=== PATIENT | male | born 1955 | race African-American/Black ===

== ENCOUNTER 2021-07-19 17:01 | Inpatient (IN) | payer MEDICAID, OTHER ==
[~2021-07-19] VITALS: Ht 182.9 cm; Wt 74.8 kg
[2021-07-19 18:25] LABS: BASOPHILS % (AUTO) 0.9 % (0.0-2.0); EOSINOPHILS % (AUTO) 2.7 % (0.0-6.0); HEMATOCRIT 41 % (39-51); HEMOGLOBIN 13.3 g/dL (13.5-17.5); LYMPHOCYTES # (AUTO) 0.5 K/uL (0.8-4.8); LYMPHOCYTES % (AUTO) 14.3 % (20.0-44.0); MEAN CORPUSCULAR HGB CONC 32 g/dl (31.0-36.0); MEAN CORPUSCULAR VOLUME 85 fL (80-96); MONOCYTES # (AUTO) 0.4 K/uL (0.1-1.30); MONOCYTES % (AUTO) 10.6 % (2.0-12.0); NEUTROPHILS # (AUTO) 2.7 K/uL (1.8-8.9); NEUTROPHILS % (AUTO) 71.5 % (43.0-81.0); PLATELET COUNT (AUTO) 193 K/uL (150-450); RED BLOOD CELL COUNT(AUTO) 4.87 MIL/uL (4.5-6.0); WHITE BLOOD COUNT (AUTO) 3.8 K/uL (4.3-11.0)
[2021-07-19 18:49] LABS: ALBUMIN 2.9 g/dL (3.4-5.0); BILIRUBIN,TOTAL 1.6 mg/dL (0.2-1.0); CALCIUM, SERUM 8.2 mg/dL (8.5-10.1); CREATININE 1.7 mg/dL (0.6-1.3); POTASSIUM 3.5 mmol/L (3.5-5.1); TOTAL PROTEIN, SERUM 7.1 g/dL (6.4-8.2)
[2021-07-19] MEDS ORDERED: CEFTRIAXONE 1GM BAG (ER ONLY) 1 GM/50 ML PIGGYBACK IV ONE (20:00)
[2021-07-19] MEDS ORDERED: AZITHROMYCIN 250 MG TABLET PO ONE (20:00)
[2021-07-19] MEDS ORDERED: CEFTRIAXONE 1GM BAG (ER ONLY) 50 ML IV ONE (20:15)
[2021-07-19] MEDS ORDERED: AZITHROMYCIN 250 MG TABLET ONE (20:16)
--- NOTE | 2021-07-19 20:20 | NUR ---
CALLED CODE STEMI
--- NOTE | 2021-07-19 20:30 | NUR ---
MRSA SWAB COLLECTED AND SENT TO LAB. PATIENT'S BELONGINGS LIST DONE.
--- NOTE | 2021-07-19 20:31 | NUR ---
CALLED [facility] AT [phone] AND SPOKE WITH RAFAEL. HE RECEIVED THE EKG AND INFO. REQUESTS TRIAGE NOTE AND LABS TO BE FAXED. THEY WILL CALL THEIR TOP DISTRIBUTION EXECUTIVE
--- NOTE | 2021-07-19 20:32 | NUR ---
CALLED PT EMERGENCY CONTACT AUNDREA (FRIEND) [phone] TO NOTIFY OF ADMISSION
[2021-07-19] MEDS ORDERED: ASPIRIN 81 MG TAB.CHEW ONE (20:38)
--- NOTE | 2021-07-19 20:50 | NUR ---
DIRECT NUMBER FOR [facility] N[facility]SE RAFAEL IS [phone]. RAFAEL WAS ABOUT TO SPEAK TO THE PACKAGE SEALER MACHINE AND THEN WILL CALL BACK
[2021-07-19] MEDS ORDERED: ASPIRIN 81 MG TAB.CHEW PO ONE (21:00)
--- NOTE | 2021-07-19 21:01 | NUR ---
CALLED [facility] NURSE RAFAEL AT [phone]. RAFAEL IS UNABLE TO REACH THEIR NEWS WRITER. [facility] HOSPITALIST HAS SEEN THE EKG AND PLANS TO ACCEPT ONCE THEIR NEWS WRITER CONSULTS
--- NOTE | 2021-07-19 21:05 | NUR ---
LONNIE CARDONA CONSULTS WITH [facility] INTERNAL [facility]FFAIRS COMMANDER
--- NOTE | 2021-07-19 21:08 | NUR ---
PT WILL NOT BE TRANSFERED TO [facility]
--- NOTE | 2021-07-19 21:10 | NUR ---
RAFAEL [facility] CCT NURSE CALLED AND PT IS NOT BEING TRANSFERRED.
--- NOTE | 2021-07-19 21:32 | NUR ---
COVID SWAB COLLECTED AND SENT TO LAB
[2021-07-19] MEDS ORDERED: Z GUARD REMEDY 2 OZ OINT TP PRN (22:00)
[2021-07-19] MEDS ORDERED: ZOLPIDEM TARTRATE 5 MG TABLET PO PRN (22:00)
[2021-07-19] MEDS ORDERED: ONDANSETRON HCL/PF 4 MG/2 ML VIAL IVP PRN (22:00)
[2021-07-19] MEDS ORDERED: ACETAMINOPHEN 325 MG TABLET PO PRN (22:00)
[2021-07-19] MEDS ORDERED: HYDROCODONE/APAP 5/325MG TABLET PO PRN (22:00)
[2021-07-20 04:43] LABS: BASOPHILS # (AUTO) 0.1 K/uL (0.0-0.2); BASOPHILS % (AUTO) 3.3 % (0.0-2.0); EOSINOPHILS % (AUTO) 3.4 % (0.0-6.0); HEMATOCRIT 41 % (39-51); HEMOGLOBIN 13.1 g/dL (13.5-17.5); LYMPHOCYTES # (AUTO) 0.6 K/uL (0.8-4.8); LYMPHOCYTES % (AUTO) 15.2 % (20.0-44.0); MEAN CORPUSCULAR HGB CONC 32 g/dl (31.0-36.0); MEAN CORPUSCULAR VOLUME 85 fL (80-96); MONOCYTES # (AUTO) 0.3 K/uL (0.1-1.30); MONOCYTES % (AUTO) 7.8 % (2.0-12.0); NEUTROPHILS # (AUTO) 2.6 K/uL (1.8-8.9); NEUTROPHILS % (AUTO) 70.3 % (43.0-81.0); PLATELET COUNT (AUTO) 175 K/uL (150-450); RED BLOOD CELL COUNT(AUTO) 4.87 MIL/uL (4.5-6.0); WHITE BLOOD COUNT (AUTO) 3.7 K/uL (4.3-11.0)
--- NOTE | 2021-07-20 05:00 | NUR ---
PATIENT IN BED SLEEPING, EASY TO AROUSE. PATIENT VSS, PATIENT IN NO ACUTE DISTRESS. WILL CONTINUE TO MONITOR.
[2021-07-20 05:01] LABS: ALBUMIN 2.5 g/dL (3.4-5.0); BILIRUBIN,TOTAL 1.3 mg/dL (0.2-1.0); CALCIUM, SERUM 8.1 mg/dL (8.5-10.1); CREATININE 1.4 mg/dL (0.6-1.3); MAGNESIUM 1.8 mg/dL (1.8-2.4); PHOSPHORUS 3.8 mg/dL (2.5-4.9); POTASSIUM 3.6 mmol/L (3.5-5.1); TOTAL PROTEIN, SERUM 6.5 g/dL (6.4-8.2)
[2021-07-20 05:20] LABS: THYROID STIMULATING HORMONE 3.252 uIU/mL (0.358-3.74)
[2021-07-20 07:06] LABS: BAND % (MANUAL) 6 % (0.0-5.0); EOSINOPHILS % (MANUAL) 3 % (0-4); LYMPHOCYTES % (MANUAL) 17 % (16-48); MONOCYTES % (MANUAL) 9 % (0-11.0); NEUTROPHILS % (MANUAL) 65 (42-76)
--- NOTE | 2021-07-20 07:10 | NUR ---
NURSE NOT ON THE FLOOR
--- NOTE | 2021-07-20 07:53 | NUR ---
REPORT GIVEN TO BUCKY BLEDSOE.
--- NOTE | 2021-07-20 08:03 | NUR ---
PATIENT TRANSFERRED UNDER ACLS
[2021-07-20 08:29] VITALS: BP 126/93
[2021-07-20] MEDS: ASPIRIN EC 325 MG TABLET.DR PO SCH (08:50)
[2021-07-20] MEDS: FOLIC ACID 1 MG TABLET PO SCH (08:51)
[2021-07-20] MEDS: HEPARIN SODIUM, PORCINE 5000 UNITS/1 ML VIAL SQ SCH ×2 (08:52→21:12)
--- NOTE | 2021-07-20 09:01 | NUR ---
television repairer note received patient from er with dx abdominal pain and ascites, patient alert ,oriented x3 , on tele monitor hr st with bb hr 105 , admitted under care augusto hussein, rt ac hl intact and flushed well , bed in lowest and locked position , call light within reach , placed on2l nc c\o slight sob , plan of care discussed with patient , vs taken , will cont to monitor closely, hospital,orientation done
[2021-07-20] MEDS: THIAMINE HCL 100 MG TABLET PO SCH (09:11)
[2021-07-20] MEDS: PANTOPRAZOLE 40 MG TABLET.DR PO SCH (09:14)
--- NOTE | 2021-07-20 09:43 | NUR ---
television inspector note 2d echo done as ordered
--- NOTE | 2021-07-20 10:10 | NUR ---
PRELIMINARY ECHO SHOWED EF 10% W/LARGE PLEURAL EFFUSION AND SMALL PERICARDIAL EFFUSION. INITIAL FINDINGS ADVISED TO BUCKY OJEDA AND DIPLOMA MAKER SOON.
--- NOTE | 2021-07-20 10:54 | NUR ---
television production technician note reported to Komal velazquez 10% no new order given also abd us done
[2021-07-20] MEDS ORDERED: DEXTROSE 50%-WATER 50 ML DISP.SYRIN IV PRN (11:30)
[2021-07-20] MEDS: BLOOD SUGAR DIAGNOSTIC 1 EACH STRIP IN SCH ×3 (12:27→21:25)
--- NOTE | 2021-07-20 14:57 | NUR ---
member of technical staff notes Dr. Sauceda here. Aware of u/s result, okay to eat. All needs attended. Pt was agitated and noncompliant with care. Dr. Sauceda is aware of pt behavior.
--- NOTE | 2021-07-20 16:20 | NUR ---
telephone order supervisor note ct chest done as ordered
--- NOTE | 2021-07-20 18:31 | NUR ---
financial project manager Closing notes Pt in bed having dinner, a/o x3. Pt has nc @2L with oxygen saturation at 96% Pt is on a tele monitor Sinus tachy @106. Pt uses urinal at the bedside with 200ml output. Pt has a right ac 22gauge, clean and dry. Safety measures in place with bed in lowest locked position, call light within reach, all needs attended. Will continue to monitor.
--- NOTE | 2021-07-20 19:47 | NUR ---
RN NOTE PATIENT ALERT AND ORIENTED X3. ON ROOM AIR, NO SOB NOTED. RESPIRATIONS EVEN AND UNLABORED. DENIES ANY PAIN AT THIS TIME. IV ACCESS RIGHT AC #22, PATENT AND INTACT. NO SIGNS OF INFILTRATION. PROVIDED SNACKS AND ICE AT THIS TIME. BED LOCKED AND IN LOWEST POSITION. CALL LIGHT WITHIN REACH. ALL NEEDS ANTICIPATED.
[2021-07-20 20:00] VITALS: BP 136/100
[2021-07-20] MEDS ORDERED: CEFTRIAXONE 1 G in IV D5W 50 ML IV SCH (20:00)
[2021-07-20] MEDS: INSULIN REGULAR, HUMAN 100 UNIT/ML 3 ML VIAL SQ PRN (21:27)
[2021-07-20] MEDS ORDERED: AZITHROMYCIN 500 MG in IV D5W 250 ML IV SCH (22:00)
[2021-07-20] MEDS: LORAZEPAM INJ 2 MG/ML VIAL IV PRN (22:44)
[2021-07-21] VITALS: BP 129/94
[2021-07-21] MEDS: LORAZEPAM INJ 2 MG/ML VIAL IV PRN ×3 (03:41→22:17)
[2021-07-21 04:00] VITALS: BP 111/86
--- NOTE | 2021-07-21 06:37 | NUR ---
RN NOTE PATIENT IN BED RESTING. ON O2 2L VIA NASAL CANNULA, PATIENT AT TIMES NON-COMPLIANT WITH O2 THROUGH OUT THE NIGHT. NEEDS FREQUENT REMINDERS. PATIENT AGITATED AND AGGRESSIVE AT TIMES WELL. ALL DUE MEDS GIVEN ORDERED. BED LOCKED AND IN LOWEST POSITION. CALL LIGHT WITHIN REACH. WILL ENDORSE TO AM SHIFT.
[2021-07-21 07:36] LABS: BASOPHILS % (AUTO) 0.8 % (0.0-2.0); EOSINOPHILS % (AUTO) 1.3 % (0.0-6.0); HEMATOCRIT 42 % (39-51); HEMOGLOBIN 13.2 g/dL (13.5-17.5); LYMPHOCYTES # (AUTO) 0.6 K/uL (0.8-4.8); MEAN CORPUSCULAR HGB CONC 31 g/dl (31.0-36.0); MEAN CORPUSCULAR VOLUME 85 fL (80-96); MONOCYTES # (AUTO) 0.4 K/uL (0.1-1.30); MONOCYTES % (AUTO) 9.6 % (2.0-12.0); NEUTROPHILS # (AUTO) 3.1 K/uL (1.8-8.9); NEUTROPHILS % (AUTO) 74.3 % (43.0-81.0); PLATELET COUNT (AUTO) 180 K/uL (150-450); RED BLOOD CELL COUNT(AUTO) 4.96 MIL/uL (4.5-6.0); WHITE BLOOD COUNT (AUTO) 4.2 K/uL (4.3-11.0)
[2021-07-21 07:37] LABS: CALCIUM, SERUM 8.2 mg/dL (8.5-10.1); CREATININE 1.5 mg/dL (0.6-1.3); PHOSPHORUS 4.1 mg/dL (2.5-4.9); POTASSIUM 4.1 mmol/L (3.5-5.1)
[2021-07-21 07:45] LABS: ALBUMIN 2.7 g/dL (3.4-5.0); BILIRUBIN,DIRECT 0.7 mg/dL (0.0-0.2); BILIRUBIN,TOTAL 1.5 mg/dL (0.2-1.0); TOTAL PROTEIN, SERUM 6.8 g/dL (6.4-8.2)
--- NOTE | 2021-07-21 07:54 | NUR ---
RN OPENING NOTE Pt is Awake, Alertt and oriented x 3, verbally responsive, Tele reading sinus tachy, On room air 95%. Safety precautions implemented, bed locked in lowest position, call light within reach.
[2021-07-21 08:00] VITALS: BP 139/104
[2021-07-21] MEDS ORDERED: FUROSEMIDE 20 MG/2 ML VIAL IV SCH (09:00)
[2021-07-21] MEDS: PANTOPRAZOLE 40 MG TABLET.DR PO SCH (09:16)
[2021-07-21] MEDS: BLOOD SUGAR DIAGNOSTIC 1 EACH STRIP IN SCH ×5 (09:16→22:00)
[2021-07-21] MEDS: FOLIC ACID 1 MG TABLET PO SCH (09:17)
[2021-07-21] MEDS: METOPROLOL SUCCINATE 50 MG TAB.SR.24H PO SCH (09:20)
[2021-07-21] MEDS: LISINOPRIL (10MG) 10 MG TABLET PO SCH (09:21)
[2021-07-21] MEDS: THIAMINE HCL 100 MG TABLET PO SCH (09:21)
[2021-07-21] MEDS: HEPARIN SODIUM, PORCINE 5000 UNITS/1 ML VIAL SQ SCH ×2 (09:24→21:33)
[2021-07-21] MEDS: ASPIRIN EC 325 MG TABLET.DR PO SCH (09:27)
[2021-07-21] MEDS: INSULIN REGULAR, HUMAN 100 UNIT/ML 3 ML VIAL SQ PRN (09:42)
[2021-07-21 12:00] VITALS: BP 141/114
--- NOTE | 2021-07-21 12:00 | NUR ---
B/S 62 mg/dl-no coverage per protocol.
[2021-07-21] MEDS: FUROSEMIDE 40 MG/4 ML VIAL IV SCH ×3 (12:10→21:28)
--- NOTE | 2021-07-21 13:10 | NUR ---
"SS consult: SS consult requested for homelessness and substance use. Pt is a 65-year-old, male. SW met with pt at his bedside in the med-surg unit. Pt was alert and oriented x4. Pt presented calm and cooperative. Pt was eating lunch. Pt appeared appropriately groomed. Pt stated that he is currently homeless. Pt reported homelessness for the last 20 years. Pt stated that he was previously staying at a homeless care home and reported that his car is parked at the care home. Pt stated that he has access to social support and provided SW with contact information for his sister, Liane, . Pt stated that he is ambulatory and able to care for himself. Pt currently receives SSI as a source of income. Pt reported that he smokes cigarettes a 1-2x/week. Per pt's toxicology report, pt is positive for cocaine use. Pt denied hx of mental illness. Pt denied current SI/HI. SW offered the pt homeless and substance use resources. Pt accepted the resources and thanked SW. Pt signed the homeless waiver and SW filed waiver in the pt's chart. Pt stated that he plans to return to his prior living arrangement at a care home and will arrange transportation independently. PLAN: Pt plans to return to his prior living arrangement at a care home. No further SS intervention at this time, however, SW will remain available as needed. RESOURCES: Year-round shelters: [facility] [place] [address] [place] [address] ; [facility] [place] [address] [place] [address]; [facility] [id number] [facility] [address] SPA 4 | [facility] [place] Provider: [facility] Address: [address], [address] # of Beds: 48 Population Served: [facility] Provider: [facility] Serve Address: [address] [facility], [address] # of Beds: 73 Population Served: [facility] 6 | [facility] Provider: [facility] Last Address: [address] [facility], [address] # of Beds: 63 Population Served: [facility] SPA 3 | [facility] Provider: [facility] [place] Address: [address] [facility] [place], [address] # of Beds: 75 Population Served: [facility] S[facility] 8 | [facility] Provider: [facility] [place] Address: [address] [facility], [address] # of Beds: 80 Population Served: [facility] SPA 1 | [facility] Provider: [facility] [place] Address: [address] [place] [address], [address] # of Beds: 85 Population Served: [facility] 2 | [facility] Provider: Latoya webb [facility] Address: Confidential (please call for location) # of Beds: 52 Population Served: [facility] 4 | [facility] Provider: [facility] Address: [address] [place] [address], [facility] # of Beds: 49 Population Served: [facility] Provider: [facility] To Serve Address: [address] [place] [address], [facility] # of Beds: 27 Population Served: [facility] Hygiene: [place] [facility]: [address] [address] [facility] ; [place] [facility] [address] [facility] ; [facility] [address] [facility] . Food Resources: [place] [employer] [facility] at [facility]- [address] [facility]; Meet Each Need with Dignity ([facility]) [address] [facility]; [facility] [address] [facility]; [facility] [address] [facility] [place]. Mental Health resources provided: [facility] [address] [facility], [place] [address] ; [facility] [address] [facility] [address], [place], [place] [id number] ; [facility] [address] [place] [address] ; [place] [address] [address] Clin[address]: [facility] [address] [facility], [address] [place]. [place] ; [facility] [address] [facility] [address] [place] [address]; [facility] [address] [facility] [place] [address] [phone] Counseling--Outpatient [facility] [address] [facility], [place] [address] (Specializes in in-depth psychotherapy for emotional distress: anxiety, depression, interpersonal conflicts, life transitions, childhood abuse) PSYCHIATRIC OUTPATIENT SERVICES [facility] Partial Hospitalization and Intensive Outpatient Program (Managed Care and [place] Only) [address] [facility] [address] [facility] Partial Hospitalization and Outpatient Program [address] [facility] [place], [place] [id number] [facility] Partial Hospitalization and Outpatient Program [address] [facility]. [place], [place] [id number] [facility] [place] [facility] [address] [facility]. [address] [place], [place] [address] [facility] Partial Hospitalization and Outpatient Program [address] [place], [place] [phone] Substance use resources provided included: [facility] Substance Abuse Self-Helpline (SASH) ; [facility] [address] [facility] [address] ; [facility] [address] [facility] [address] ; [facility] [address] [facility] [address] ; [facility] [address] [facility] [address] ; [facility] [address] [facility] [phone] ; [facility]; [facility] [place]; [facility]; Alcoholics Anonymous -SFV"
[2021-07-21 16:00] VITALS: BP 140/100
--- NOTE | 2021-07-21 17:00 | NUR ---
B/S 83 mg/dl, no coverage per protocol.
--- NOTE | 2021-07-21 18:47 | NUR ---
RN CLOSING NOTES Pt is A/O X 4, no respiratory distress, No SOB. Ambulatory with supervision, Continent of bowel with episodes of urine incontinence. Denies pain, abdominal area soft with mild distention. Patient noted with behavior of restlessness, ambulating unassisted and screaming on the hallway asking for cake and additional food. Ativan administered with mild relief. Tele reading sinus rhtythm. Addendum: 07/21/21 at 1851 by RENATA COOLEY RN Tele reading sinus rhythm with BBB, Left AC IV site clean with no s/sx of infiltration. Safety precautions implemented, bed locked in lowest position, call light within reach.
--- NOTE | 2021-07-21 19:25 | NUR ---
RN OPENING NOTE REC'D REPORT FROM BUCKY YANEZ. REC'D PT IN BED, RESTING, AWAKENS EASILY. NO RESP DISTRESS NOTED. NO SOB NOTED. BREATHING EVEN AND UNLABORED. PT ON TELE MONITORING PRESENTS WITH NSR, HEART RATE OF 83. BASELINE TO PT. PT HAS IV SITE, LEFT AC #20 FLUSHED ASEPTICALLY. PT ABLE TO USE URINAL, SAFETY MEASURES IN PLACE. APPLICABLE ISOLATION PRECAUTION IN PLACE. HOB ELEVATED. SIDE RAILS X2 BED LOCKED IN LOWEST POSITION. WITH BED ALARM ON. CALL LIGHT WITHIN REACH. NO S/S OF PAIN. ALL NEEDS ATTENDED AT THIS TIME. WILL CONT TO MONITOR.
--- NOTE | 2021-07-21 19:30 | NUR ---
RN OPENING NOTE REC'D REPORT FROM BUCKY ARSHAD. REC'D PT IN BED, NON VERBAL, AWAKE. ON 2L OF O2 VIA NC. NO RESP DISTRESS NOTED. NO SOB NOTED. BREATHING EVEN AND UNLABORED. PT ON TELE MONITORING PRESENTS WITH NSR, LCW NOT PACING. PT WITH BBB, HEART RATE OF 71. BASELINE TO PT. PT HAS IV SITE, SUBCLAVIAN TLC, GOOD BLOOD RETURN NOTED. FLUSHED ASEPTICALLY. SAFETY MEASURES IN PLACE. APPLICABLE ISOLATION PRECAUTION IN PLACE. HOB ELEVATED. SIDE RAILS X2 BED LOCKED IN LOWEST POSITION. WITH BED ALARM ON. CALL LIGHT WITHIN REACH. NO S/S OF PAIN. ALL NEEDS ATTENDED AT THIS TIME. WILL CONT TO MONITOR. Addendum: 07/21/21 at 2041 by NUBIA SAPP RN INCORRECT PT, DISREGARD
[2021-07-21 20:00] VITALS: BP 127/98
--- NOTE | 2021-07-21 22:10 | NUR ---
RN NOTE:BS REFUSAL/ATIVAN PT IS AGITATED. VERBALLY OFFENSIVE, SHOUTING. ATTEMPTED TO TAKE BLOOD SUGAR, PT BECAME VERY HOSTILE DESPITE EDUCATION REGARDING IMPORTANCE OF CHECKING BLOOD SUGAR X2. PT CONTINUES TO YELL, VERBALIZING "LEAVE ME ALONE, LET ME GET SOME SLEEP" ASKED TO COME BACK AT A LATER TIME TO CHECK BS, PT STILL REFUSED. SANDWICH AND NOURISHMENT PROVIDED, PT REQUESTED FROM EARLIER @2100 WILL CONT TO MONITOR FOR SAFETY. PRN ATIVAN 1MG GIVEN ORDERED. WILL CONT TO MONITOR CLOSELY.
[2021-07-22] VITALS: BP 102/80
[2021-07-22 02:19] LABS: BILIRUBIN,URINE NEGATIVE (NEGATIVE); COLOR,URINE YELLOW (YELLOW); LEUKOCYTE ESTERASE ,URINE NEGATIVE (NEGATIVE); NITRITE, URINE NEGATIVE (NEGATIVE); PROTEIN,URINE NEGATIVE (NEGATIVE); UGLUCOSE NEGATIVE (NEGATIVE)
[2021-07-22 02:40] LABS: BACTERIA,URINE None seen /HPF (None Seen); RBC,URINE 0-2 /HPF (0-2); SQUAMOUS EPITHELIAL CELL,UR Few /HPF (None Seen); WBC,URINE 0-2 /HPF (0-3)
[2021-07-22 02:41] LABS: MUCUS,URINE Few /LPF (None Seen)
[2021-07-22 02:49] LABS: CREATININE, URINE < 13.0 MG/DL (30.0-125.0); URINE SODIUM, RANDOM 116 mmol/l (40-220)
[2021-07-22 04:00] VITALS: BP 107/71
--- NOTE | 2021-07-22 06:52 | NUR ---
RN CLOSING NOTE NO CHANGE IN PT CONDITION, OCCASIONALLY GOT UP THROUGHOUT THE NIGHT FOR NOURISHMENT, PROVIDED. IN WHICH PT WENT BACK TO SLEEP. PT IS STABLE AT THIS TIME. SAFETY MEASURES IN PLACE. HOB ELEVATED. SIDE RAILS X2 BED LOCKED IN LOWEST POSITION. WITH BED ALARM ON. CALL LIGHT WITHIN REACH. NO S/S OF PAIN. ALL NEEDS ATTENDED AT THIS TIME. WILL ENDORSE TO DAY SHIFT FOR CONT OF CARE
[2021-07-22 08:00] VITALS: BP 130/101
--- NOTE | 2021-07-22 08:00 | NUR ---
OCEANOGRAPHY TEACHER NOTE PATIENT IN BED ALERT ORIENTED ,AGITATED AND NONCOMPLIANT WITH CARE , . ON RA AT THIS TIE NO SOB NOTED AT THIS TIME, ON TELE MONITOR HR 94 , LT AC HL INTACT AND FLUSHED WELL, BED N LOWEST AND LOCKED POSITION,PLAN OF CARE WITH DISUSED WITH PLAN CARE, WILL CONT TO MONITOR CLOSELY
[2021-07-22] MEDS: THIAMINE HCL 100 MG TABLET PO SCH (09:08)
[2021-07-22] MEDS: FOLIC ACID 1 MG TABLET PO SCH (09:08)
[2021-07-22] MEDS: ASPIRIN EC 325 MG TABLET.DR PO SCH (09:08)
[2021-07-22] MEDS: LISINOPRIL (10MG) 10 MG TABLET PO SCH (09:08)
[2021-07-22 09:09] VITALS: BP 130/103
[2021-07-22] MEDS: METOPROLOL SUCCINATE 50 MG TAB.SR.24H PO SCH (09:09)
[2021-07-22] MEDS: PANTOPRAZOLE 40 MG TABLET.DR PO SCH (09:09)
[2021-07-22] MEDS: HEPARIN SODIUM, PORCINE 5000 UNITS/1 ML VIAL SQ SCH (09:10)
[2021-07-22] MEDS: BLOOD SUGAR DIAGNOSTIC 1 EACH STRIP IN SCH ×3 (09:14→17:10)
[2021-07-22] MEDS: FUROSEMIDE 100 MG/10 ML VIAL IV SCH ×3 (10:53→18:34)
--- NOTE | 2021-07-22 11:00 | NUR ---
ms rnn note new hl on rt ac inserted with good blood return
--- NOTE | 2021-07-22 11:21 | NUR ---
electrician telephone note seen by dr calhoun ,patient condition updated
[2021-07-22] MEDS ORDERED: METO50TA7 PO (11:58)
[2021-07-22] MEDS ORDERED: FURO40TA5 PO (11:58)
[2021-07-22] MEDS ORDERED: SPIR25TA6 PO (11:58)
[2021-07-22] MEDS ORDERED: PANT40TA2 PO (11:58)
[2021-07-22] MEDS ORDERED: LISI10TA29 PO (11:58)
[2021-07-22] MEDS ORDERED: SPIRONOLACTONE 25 MG TABLET PO SCH (12:00)
--- NOTE | 2021-07-22 12:35 | NUR ---
per cm Sasser insurance finding snf for patient.
[2021-07-22 12:38] LABS: EOSINOPHILS % (AUTO) 1.8 % (0.0-6.0); HEMATOCRIT 43 % (39-51); HEMOGLOBIN 13.5 g/dL (13.5-17.5); LYMPHOCYTES # (AUTO) 0.5 K/uL (0.8-4.8); LYMPHOCYTES % (AUTO) 11.2 % (20.0-44.0); MEAN CORPUSCULAR HGB CONC 32 g/dl (31.0-36.0); MEAN CORPUSCULAR VOLUME 85 fL (80-96); MONOCYTES # (AUTO) 0.3 K/uL (0.1-1.30); MONOCYTES % (AUTO) 7.4 % (2.0-12.0); NEUTROPHILS # (AUTO) 3.5 K/uL (1.8-8.9); NEUTROPHILS % (AUTO) 78.6 % (43.0-81.0); PLATELET COUNT (AUTO) 193 K/uL (150-450); RED BLOOD CELL COUNT(AUTO) 5.02 MIL/uL (4.5-6.0); WHITE BLOOD COUNT (AUTO) 4.4 K/uL (4.3-11.0)
[2021-07-22 12:53] LABS: ALBUMIN 2.9 g/dL (3.4-5.0); BILIRUBIN,TOTAL 1.1 mg/dL (0.2-1.0); CALCIUM, SERUM 8.3 mg/dL (8.5-10.1); CREATININE 1.6 mg/dL (0.6-1.3); POTASSIUM 3.7 mmol/L (3.5-5.1); TOTAL PROTEIN, SERUM 7.1 g/dL (6.4-8.2)
[2021-07-22] MEDS: LORAZEPAM INJ 2 MG/ML VIAL IV PRN (13:52)
--- NOTE | 2021-07-22 15:00 | NUR ---
ms rn note Risa wang called to facility to give report for discharge ,spoke with charge nurse
--- NOTE | 2021-07-22 16:14 | NUR ---
MS RN NOTE REFUSED TO TAKE VS
--- NOTE | 2021-07-22 18:37 | NUR ---
ms rn note still awaiting for ambulance to transfer to snf,patient alert awake, not in distress
--- NOTE | 2021-07-22 19:04 | NUR ---
MS RN Notes Ambulance here, report given. Hep lock removed from the right side, dressing applied. Belongings checked, pt taken in stable condition.
[2021-07-23] MEDS ORDERED: FUROSEMIDE 40 MG TABLET PO SCH (09:00)
== END 2021-07-22 19:07 | DRG 432 ==
LOC: ER 17:08 → TRANSITION 07-20 03:16 → TELE1 07-20 07:28 → MEDSG1 07-22 09:32
PROVIDERS: ADMIT Hospitalist; ATTEND Internal Medicine
DX: K70.31 Alcoholic cirrhosis of liver with ascites (principal); N17.0 Acute kidney failure with tubular necrosis; I50.23 Acute on chronic systolic (congestive) heart failure; E44.0 Moderate protein-calorie malnutrition; J98.11 Atelectasis; I42.6 Alcoholic cardiomyopathy; I13.0 Hypertensive heart and chronic kidney disease with heart failure and stage 1 through stage 4 chronic kidney disease, or unspecified chronic kidney disease; Z59.0 Homelessness; F17.200 Nicotine dependence, unspecified, uncomplicated; F10.20 Alcohol dependence, uncomplicated; I27.20 Pulmonary hypertension, unspecified; N18.30 Chronic kidney disease, stage 3 unspecified; E88.09 Other disorders of plasma-protein metabolism, not elsewhere classified; Z20.822 Contact with and (suspected) exposure to COVID-19; Z68.22 Body mass index [BMI] 22.0-22.9, adult; F12.10 Cannabis abuse, uncomplicated; N13.9 Obstructive and reflux uropathy, unspecified; J44.9 Chronic obstructive pulmonary disease, unspecified; Z98.61 Coronary angioplasty status
CPT/HCPCS: 36415; 71045-TC; 71250-TC; 76700-TC; 80048-TC; 80053-TC; 80061-TC; 80076-TC; 81001; 82570-TC; 82962-TC; 83735-TC; 83880; 84100-TC; 84300-TC; 84443-TC; 84484-TC; 85025-TC; 85610-TC; 85730-TC; 87081-TC; 93307-TC; C9803; G0378; G0480; J0456; J0696; J1644; J1815; J1940; J2060; J2405; J7050; J7060; U0003